=== PATIENT | female | born 1970 | race Caucasian/White ===

== ENCOUNTER 2017-10-31 13:02 | Emergency (ER) | payer OTHER ==
[2017-10-31] MEDS: ACETAMINOPHEN 325 MG TAB PO (13:48)
[2017-10-31] MEDS: ONDANSETRON (ODT) 4 MG TAB ODT (13:48)
[2017-10-31] MEDS: KETOROLAC 30 MG INJ IM (13:50)
== END 2017-10-31 16:57 | disposition home or self-care (01) ==
LOC: FTE 13:02
DX: R05 Cough (principal); R50.9 Fever, unspecified; R52 Pain, unspecified; R11.10 Vomiting, unspecified; I10 Essential (primary) hypertension
CPT/HCPCS: 71045; 96372; 99284-25